=== PATIENT | female | born 1940 | race Caucasian/White ===

== ENCOUNTER 2022-01-07 22:18 | Inpatient (IN) ==
[2022-01-07 23:05] LABS: Basophils % 0.3 %; Eosinophils # 0.2 K/mcL (0.0-0.6); Eosinophils % 2.3 %; Hematocrit 33.4 % (35.3-44.9); Hemoglobin 10.9 g/dL (11.5-15.4); Immature Granulocytes % 0.3 % (0-4); Lymphocytes # 1.7 K/mcL (0.6-4.6); Lymphocytes % 21.1 %; Mean Corpuscular HGB Conc 32.6 g/dL (31.6-35.5); Mean Corpuscular Hemoglobin 31.6 pg (28.0-33.3); Mean Corpuscular Volume 96.8 fL (83.0-100.0); Mean Platelet Volume 10.4 fL (9.4-12.4); Monocytes # 0.8 K/mcL (0.0-1.3); Monocytes % 10.4 %; Neutrophils # 5.1 K/mcL (1.6-8.9); Platelet Count 194 K/mcL (140-400); Red Blood Count 3.45 M/mcL (3.82-4.97); Segmented Neutrophils % 65.6 %; White Blood Count 7.8 K/mcL (4.3-11.1)
[2022-01-07 23:26] LABS: BUN/Creatinine Ratio 17 (6-26); Blood Urea Nitrogen 17 mg/dL (8-23); Carbon Dioxide 23 mEq/L (23-29); Chloride 107 mEq/L (98-107); Glucose 101 mg/dL (70-105); Osmolality,Calculated 290 (280-300); Potassium 4.4 mEq/L (3.5-5.1); Sodium 139 mEq/L (136-145); eGFR For African Americans > 60 (> 60); eGFR For Non-African Americans 53 (> 60)
[2022-01-07 23:27] LABS: Troponin I < 0.03 ng/mL (< 0.04)
[2022-01-08 00:29] LABS: Bilirubin,Urine Negative (Negative); Blood,Urine Trace (Negative); Clarity,Urine Turbid (Clear); Color,Urine Yellow (Yellow); Glucose,Urine (UA) Normal (Normal); Ketones,Urine Trace mg/dL (Negative); Leukocyte Esterase,Urine Large (Negative); Mucus,Urine Many per lpf (None-Few); Nitrite,Urine Negative (Negative); PH,Urine 5.5 pH Units (5.0-8.0); Protein,Urine 50 mg/dL (Neg-Trace); Squamous Epithelial Cell,Urine Moderate per hpf (None-Few); Urobilinogen,Urine Normal (Normal)
[2022-01-08 00:30] LABS: INR 1.7; Prothrombin Time 19.3 Seconds (9.4-12.1)
[2022-01-08 00:33] LABS: Activated Partial Thrombo Time 43.7 Seconds (26.0-36.0)
[2022-01-08] MEDS ORDERED: Naloxone 0.4 MG/ML INJ IVP PRN (01:15)
[2022-01-08] MEDS ORDERED: Ondansetron 4 MG/2 ML VIAL IVP PRN (01:15)
[2022-01-08] MEDS ORDERED: Acetaminophen 325 MG TABLET PO PRN (01:15)
[2022-01-08] MEDS ORDERED: Melatonin 3 MG TABLET PO PRN (01:15)
[2022-01-08] MEDS ORDERED: 0.9 % Sodium Chloride 1,000 ML IVC SCH (02:15)
[2022-01-08] MEDS ORDERED: *HR* Heparin 5,000 UNIT/ML VIAL IVP PRN ×2 (03:05)
[2022-01-08 03:08] LABS: Hematocrit 33.6 % (35.3-44.9); Hemoglobin 11.1 g/dL (11.5-15.4); Mean Corpuscular Hemoglobin 31.8 pg (28.0-33.3); Mean Corpuscular Volume 96.3 fL (83.0-100.0); Mean Platelet Volume 11.5 fL (9.4-12.4); Platelet Count 181 K/mcL (140-400); Red Blood Count 3.49 M/mcL (3.82-4.97); White Blood Count 7.8 K/mcL (4.3-11.1)
[2022-01-08] MEDS ORDERED: D5% in Water 1,000 ML IVC PRN (03:11)
[2022-01-08] MEDS ORDERED: *HR* Dextrose 50 % in Water (Syg) 50 ML SYRINGE IVP PRN (03:11)
[2022-01-08] MEDS ORDERED: Dextrose 4 GM Chewable Tablets PO PRN ×2 (03:11)
[2022-01-08 03:16] LABS: INR 1.5; Prothrombin Time 17.2 Seconds (9.4-12.1)
[2022-01-08 03:18] LABS: Activated Partial Thrombo Time 39.1 Seconds (26.0-36.0)
[2022-01-08 03:28] LABS: Alanine Aminotransferase 14 Units/L (7-52); Albumin 3.8 g/dL (3.5-5.7); Albumin/Globulin Ratio 1.4 (1.1-2.2); Alkaline Phosphatase 68 Units/L (34-104); Aspartate Amino Transferase 19 Units/L (13-39); BUN/Creatinine Ratio 19 (6-26); Bilirubin,Total 0.7 mg/dL (0.3-1.0); Blood Urea Nitrogen 18 mg/dL (8-23); Carbon Dioxide 20 mEq/L (23-29); Chloride 107 mEq/L (98-107); Globulin 2.7 g/dL (2.4-3.5); Glucose 101 mg/dL (70-105); Osmolality,Calculated 288 (280-300); Potassium 4.5 mEq/L (3.5-5.1); Sodium 138 mEq/L (136-145); Total Protein 6.5 g/dL (6.4-8.9); eGFR For African Americans > 60 (> 60); eGFR For Non-African Americans 56 (> 60)
[2022-01-08 03:29] LABS: Magnesium 1.9 mg/dL (1.6-2.6); Phosphorous 3.2 mg/dL (2.7-4.5)
[2022-01-08] MEDS: Heparin 25,000UNIT/250ML 1/2NS 25,000 UNIT/250 ML IV.SOLN IVC SCH (04:41)
[2022-01-08] MEDS: Aspirin 81 MG TAB.CHEW PO SCH (08:52)
[2022-01-08] MEDS: cefTRIAXone 1,000 MG in 0.9 % Sodium Chloride 10 ML IVPB SCH (08:52)
[2022-01-08] MEDS: Lactobacillus 1 EACH CAP.SPRINK PO SCH ×2 (08:52→19:30)
[2022-01-08 10:16] LABS: Estimated Average Glucose 123 mg/dl; Hemoglobin A1C 5.9 %
[2022-01-08] MEDS ORDERED: Lidocaine -MPF 1% 5 ML AMPUL INFILT ONE (12:29)
[2022-01-09 03:01] LABS: Hemoglobin 9.9 g/dL (11.5-15.4); Mean Corpuscular HGB Conc 31.9 g/dL (31.6-35.5); Mean Corpuscular Hemoglobin 30.5 pg (28.0-33.3); Mean Corpuscular Volume 95.4 fL (83.0-100.0); Mean Platelet Volume 10.1 fL (9.4-12.4); Platelet Count 191 K/mcL (140-400); Red Blood Count 3.25 M/mcL (3.82-4.97); Red Cell Distribution Width 13.9 % (11.5-14.5); White Blood Count 8.7 K/mcL (4.3-11.1)
[2022-01-09 03:26] LABS: % Iron Saturation 31 % (15-50); BUN/Creatinine Ratio 21 (6-26); Blood Urea Nitrogen 20 mg/dL (8-23); Calcium 8.5 mg/dL (8.6-10.3); Carbon Dioxide 22 mEq/L (23-29); Chloride 108 mEq/L (98-107); Glucose 126 mg/dL (70-105); Iron 91 mcg/dL (50-170); Osmolality,Calculated 292 (280-300); Potassium 3.8 mEq/L (3.5-5.1); Sodium 139 mEq/L (136-145); Transferrin 211 mg/dL (203-362); eGFR For African Americans > 60 (> 60); eGFR For Non-African Americans 57 (> 60)
[2022-01-09 03:41] LABS: Ferritin 141 ng/mL (10-120)
[2022-01-09] MEDS: Lactobacillus 1 EACH CAP.SPRINK PO SCH ×2 (07:35→20:51)
[2022-01-09] MEDS: cefTRIAXone 1,000 MG in 0.9 % Sodium Chloride 10 ML IVPB SCH (07:36)
[2022-01-09] MEDS: Aspirin 81 MG TAB.CHEW PO SCH (07:36)
[2022-01-09 08:12] LABS: Folate 9.7 ng/mL (3.0-16.0)
[2022-01-09] MEDS: Heparin 25,000UNIT/250ML 1/2NS 25,000 UNIT/250 ML IV.SOLN IVC SCH (09:45)
[2022-01-09] MEDS ORDERED: clonazePAM 0.5 MG TABLET PO PRN (12:18)
[2022-01-09] MEDS ORDERED: *HR* Rivaroxaban 10 MG TABLET PO SCH (17:00)
[2022-01-09] MEDS: BuPROPion SR (12 HR) 100 MG TABLET PO SCH (20:51)
[2022-01-10 05:44] LABS: Hematocrit 28.9 % (35.3-44.9); Hemoglobin 9.3 g/dL (11.5-15.4); Mean Corpuscular HGB Conc 32.2 g/dL (31.6-35.5); Mean Corpuscular Hemoglobin 31.3 pg (28.0-33.3); Mean Corpuscular Volume 97.3 fL (83.0-100.0); Mean Platelet Volume 10.1 fL (9.4-12.4); Platelet Count 172 K/mcL (140-400); Red Blood Count 2.97 M/mcL (3.82-4.97); Red Cell Distribution Width 14.2 % (11.5-14.5); White Blood Count 5.6 K/mcL (4.3-11.1)
[2022-01-10 06:02] LABS: BUN/Creatinine Ratio 14 (6-26); Blood Urea Nitrogen 12 mg/dL (8-23); Calcium 8.8 mg/dL (8.6-10.3); Carbon Dioxide 25 mEq/L (23-29); Chloride 108 mEq/L (98-107); Glucose 89 mg/dL (70-105); Osmolality,Calculated 287 (280-300); Potassium 3.8 mEq/L (3.5-5.1); Sodium 139 mEq/L (136-145); eGFR For African Americans > 60 (> 60); eGFR For Non-African Americans > 60 (> 60)
[2022-01-10] MEDS: cefTRIAXone 1,000 MG in 0.9 % Sodium Chloride 10 ML IVPB SCH (08:54)
[2022-01-10] MEDS: Lactobacillus 1 EACH CAP.SPRINK PO SCH (08:55)
[2022-01-10] MEDS: Aspirin 81 MG TAB.CHEW PO SCH (08:55)
[2022-01-10] MEDS: BuPROPion SR (12 HR) 100 MG TABLET PO SCH (08:55)
[2022-01-10 12:10] VITALS: BP 100/52; PULSE 60; TEMP 97.7; O2SAT 94
== END 2022-01-10 13:20 | disposition home or self-care (01) | DRG 309 ==
LOC: EMEROOARM 22:18 → 2NNU 22:18 → SUATTDRO 01-08 00:13 → 2NNU 01-08 01:00 → SUATTDRO 01-09 11:32
PROVIDERS: ADMIT Internal Medicine; ATTEND Family Medicine